=== PATIENT | male | born 1940 | race African-American/Black ===

== ENCOUNTER 2021-11-27 17:09 | Emergency (ER) | payer OTHER, BC ==
[2021-11-27 17:28] VITALS: BP 110/71; RESP 20; TEMP 97.7; BMI 25.4
[2021-11-27 23:30] VITALS: PULSE 85
== END 2021-11-27 23:30 | disposition home or self-care (01) ==
LOC: JER 17:09
DX: J40 Bronchitis, not specified as acute or chronic (principal)
CPT/HCPCS: 0241U-QW; 71046-TC-FY; 99283-25